=== PATIENT | male | born 1990 | race Two or more races ===

== ENCOUNTER 2019-08-01 10:19 | Emergency (ER) | payer SELFPAY ==
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
--- NOTE | 2019-08-01 11:26 | NUR ---
report received from task NICHOLAS Berkowitz. report given to rolanda Jordan. sitter monitoring from [facility] for safety, pt aware of need to provide ua. room secure.
--- NOTE | 2019-08-01 11:31 | NUR ---
TASK RN: PT RESTING ON GURNEY, FIDGETING WITH GOWN. ALL SAFETY MEASURES OBTAINED. SITTER AT DOORWAY. NADN. WILL CONTINUE TO MONITOR.
--- NOTE | 2019-08-01 11:48 | NUR ---
TASK RN: PER LAB, PT STATED "IT'S AGAINST MY SCIENTOLOGY TO DRAW BLOOD." RELAYED TO PROVIDER.
--- NOTE | 2019-08-01 12:08 | NUR ---
TASK RN: BEDSIDE REPORT TO NICHOLAS CODY.
--- NOTE | 2019-08-01 13:17 | NUR ---
Task RN: lunch tray ordered. Patient provided with water
[2019-08-01] MEDS ORDERED: HALOPERIDOL 2 MG/ML ORAL SOL PO PRN (13:30)
[2019-08-01] MEDS ORDERED: QUETIAPINE 25MG TABLET PO SCH (13:30)
[2019-08-01] MEDS ORDERED: LORazepam 1MG TABLET PO PRN (13:30)
[2019-08-01] MEDS ORDERED: DIPHENHYDRAMINE 50 MG/ML, 1ML IM PRN (13:30)
[2019-08-01] MEDS ORDERED: DIPHENHYDRAMINE 50 MG CAPSULE PO PRN (13:30)
[2019-08-01] MEDS ORDERED: HALOPERIDOL 5 MG/ML IM PRN (13:30)
[2019-08-01] MEDS ORDERED: LORazepam 2 MG/ML, 1ML IM PRN (13:30)
--- NOTE | 2019-08-01 13:54 | NUR ---
PT UNCOOPERATIVE, FIDGETY. PT REFUSES LABWORK, REFUSES TO PROVIDE URINE DESPITE EXTENSIVE EXPLAINATION BY THIS RN. SITTER MONITORING FROM [facility] FOR SAFETY. ROOM REMAINS SECURE. PT REFUSING SEROQUEL. MD REYNOLDS NOTIFIED.
--- NOTE | 2019-08-01 15:02 | NUR ---
PT IS FIDGETY, HOWEVER REMAINS ON GURNEY. PT IS A&OX4, RESPS EVEN AND UNLABORED. PT REMAINS UNCOOPERATIVE HOWEVER REFUSES ALL MEDS INCLUDING PRNS OFFERED. SITTER JEANNETTEIORING FROM [facility] FOR SAFETY, ROOM REMAINS SECURE.
--- NOTE | 2019-08-01 15:38 | NUR ---
REPORT GIVEN TO NICOHLAS HUGHES. PT REMAINS IN [place] [place]. SITTER MONITORING FROM [facility] FOR SAFETY. ROOM REMAINS SECURE.
--- NOTE | 2019-08-01 18:19 | NUR ---
LATE ENTRY: REPORT RECEIVED FROM GLO PETERSON. FOOD TRAY PROVIDED. PT REFUSING ANY INTERVENTIONS AND TREATMENT.
[2019-08-01] MEDS ORDERED: QUETIAPINE 100MG TABLET PO SCH (21:00)
--- NOTE | 2019-08-01 22:15 | NUR ---
REPORT GIVEN TO IVÁN PETERSON
--- NOTE | 2019-08-01 23:00 | NUR ---
PT RESTING ON GURNEY, RESTLESS AND FREQUENT FIDGETING, PT A&OX4, REFUSES NEEDS OR MEDICATION AT THIS TIME, PT STATED " i'm not restless i just need the medication to wear off", WHEN THIS RN ASKED HIM WHAT MEDICATION HE TOOK, PT STATED "ZERA", PT REFUSES TO ANSWER ANY FURTHER QUESTIONS AT THIS TIME, ROOM SECURED AND SITTER AT DOORWAY FOR CONTINOUS MONITORING
--- NOTE | 2019-08-02 00:14 | NUR ---
PT RESTING ON GURNEY, FREQUENTLY FIDGETING, DENIES NEEDS, NADN, RESPIRATIONS EVEN AND UNLABORED, SITTER AT DOORWAY FOR CONTINOUS MONITORING
--- NOTE | 2019-08-02 01:05 | NUR ---
PT RESTING ON GURNEY, FREQUENT EPISODES OF FIDGETING, NADN, EQUAL CHEST RISE/FALL OBSERVED, SITTER AT DOORWAY FOR CONTINOUS MONITORING
--- NOTE | 2019-08-02 02:05 | NUR ---
PT RESTING CALMLY WITH EYES CLOSED, REPOSITTIONED SELF ON GURNEY, EQUAL CHEST RISE/FALL OBSERVED, SITTER AT DOORWAY FOR CONTINOUS MONITORING
--- NOTE | 2019-08-02 02:16 | NUR ---
PT CONTINUES TO REFUSE TO LET THIS RN RECHECK VS. ALSO REFUSING HOSPITAL BED. PT FREQUENTLY PUTTING BLANKETS OVER HIS HEAD, REMINDED PT TO KEEP BLANKETS OFF FACE, LIGHTS ARE DIMMED IN ROOM, SITTER AT BEDSIDE FOR CONTINOUS MONIITORING
--- NOTE | 2019-08-02 03:31 | NUR ---
PT RESTING CALMLY WITH EYES CLOSED, NAD, EQUAL CHEST RISE/FALL OBSERVED, SITTER AT DOORWAY FOR MONITORING
--- NOTE | 2019-08-02 04:16 | NUR ---
PT RESTING CALMLY WITH EYES CLOSED, NAD, REPOSITIONED SELF ON GURNEY, EQUAL CHEST RISE/FALL OBSERVED, SITTER AT DOORWAY FOR MONITORING
--- NOTE | 2019-08-02 05:25 | NUR ---
PT RESTING CALMLYY IN BED WITH EYES CLOSED, NAD, EQUAL CHEST RISE/FALL OBSERVED, SITTER AT DOORWAY FOR CONTINOUS MONITORING
--- NOTE | 2019-08-02 06:19 | NUR ---
PT RESTING CALMLY WITH EYES CLOSED, NAD, EQUAL CHEST RISE/FALL OBSERVED, SITTER AT DOORWAY FOR MONITORING
--- NOTE | 2019-08-02 07:05 | NUR ---
REPORT RECIEVED FROM SERA RN, PT RESTING ON [employer]. SI PRECAUTIONS OBSERVED. PT RESTELESS AND JUMPY THIS AM, REFUSING MEDS AND URINE SAMPLE, PT DID AGREE TO VS. VSS. NAD NOTED AT THIS TIME.
[2019-08-02 07:12] VITALS: BP 111/73
--- NOTE | 2019-08-02 08:16 | NUR ---
PT PROVIDED WITH BREAKFAST TRAY, NO OTHER NEEDS AT THIS TIME
--- NOTE | 2019-08-02 10:04 | NUR ---
PT RESTING ON BED, AWAKENS TO VOICE, ASKED PT PROVIDE URINE SAMPLE, REFUSES STRAIGHT CATH AT THIS TIME. NAD NOTED
--- NOTE | 2019-08-02 11:46 | NUR ---
YE KENNEY IN TO EVAL PT. PT TO BE RELEASED FROM LEGAL HOLD. ENRIQUE RAMIREZ ORDERED.
== END 2019-08-02 12:38 | disposition home or self-care (01) ==
LOC: ED 13:14
DX: F29 Unspecified psychosis not due to a substance or known physiological condition (principal); F60.0 Paranoid personality disorder; F19.10 Other psychoactive substance abuse, uncomplicated
CPT/HCPCS: 99284